=== PATIENT | male | born 1945 | race Caucasian/White ===

== ENCOUNTER → 2021-01-31 | Day surgery (SDC) | payer MEDICARE, BC ==
[~2021-01-31] MED LIST: Lactated Ringers 1,000 ML IV SCH; Propofol 200 MG/20 ML SDV ONE
[2021-01-31 10:01] VITALS: BP 105/53; PULSE 63
--- NOTE | 2021-01-31 12:04 | OR ---
DATE OF OPERATION: 01/31/2021 PREOPERATIVE DIAGNOSIS: ALTERED BOWEL HABITS. POSTOPERATIVE DIAGNOSIS: ALTERED BOWEL HABITS. SURGEON: Krish Johnson MD PROCEDURE: DIAGNOSTIC COLONOSCOPY WITH SNARE POLYPECTOMY X5. ANESTHESIA: MAC. COMPLICATIONS: None. SPECIMEN: Tubular adenomas x5, all 0.5 cm or less. FINDINGS: 1. Full-length colonoscopy. 2. Five separate tubular adenomas, see report. 3. Mild sigmoid diverticulosis. 4. No obstructing lesions to account for the patient's constipation. RECOMMENDATIONS: Continue with aggressive medical therapy. INDICATIONS: The patient has a reasonably acute onset over the last months of severe constipation, having a lot of difficult time going. He does have Parkinson's. We elected to proceed with a diagnostic colonoscopy. DESCRIPTION OF PROCEDURE: The patient was prepped and draped, placed in the left lateral decubitus position. A lubricated Olympus colonoscope was inserted and easily advanced to the cecum. Direct visualization of the ileocecal valve and appendiceal orifice was accomplished. The bowel prep was adequate. Upon withdrawal of the scope, the cecum and proximal ascending colon were benign. In the mid ascending colon region, the patient had 3 small tubular adenomas, all between 4 to 5 mm, all were removed with a snare and suctioned into polyp trap #1 without complication. The rest of the ascending and the first half of the transverse colon were unremarkable. In the mid transverse colon, the patient had a fourth tubular adenoma, maybe 5 to 6 mm, also removed with a snare and suctioned into polyp trap #2. The rest of the transverse and descending colons were unremarkable. The patient does have some scattered diverticula throughout the sigmoid colon, very mild in severity, around 40 cm. The patient's fifth polyp was a smaller flat tubular adenoma also removed with a snare and suctioned into polyp trap #3 without problem. The rest of the sigmoid and rectosigmoid junction were mass-free. I could find no obstructing lesions in the left colon. The rectal vault appeared benign. Retroflexion showed some perianal skin tags, otherwise benign. Air was suctioned and the scope removed without complication. BONY/TATUM /[id number]
== END ==
LOC: CC.SDS 08:00
PROVIDERS: ATTEND Family Medicine
DX: D12.2 Benign neoplasm of ascending colon (principal); D12.5 Benign neoplasm of sigmoid colon; D12.3 Benign neoplasm of transverse colon; K57.30 Diverticulosis of large intestine without perforation or abscess without bleeding; E78.5 Hyperlipidemia, unspecified; M81.0 Age-related osteoporosis without current pathological fracture; E55.9 Vitamin D deficiency, unspecified; Z79.899 Other long term (current) drug therapy; Z98.890 Other specified postprocedural states
CPT/HCPCS: 00811; 88305; 99100; J2704; J7120

== ENCOUNTER 2023-10-02 16:00 | Observation (INO) | payer MEDICARE, BC ==
[2023-10-02 16:59] LABS: BASOPHILS ABSOLUTE AUTO 0.05 10^3/uL (0.00-0.50); BASOPHILS PERCENT AUTO 0.3 % (0-1); EOSINOPHILS ABSOLUTE AUTO 0.02 10^3/uL (0.00-1.50); EOSINOPHILS PERCENT AUTO 0.1 % (0-6); HEMATOCRIT 46.5 % (42.0-52.0); HEMOGLOBIN 15.7 g/dL (14.0-18.0); IMMATURE GRAN ABSOLUTE AUTO 0.02 10^3/uL (0.00-0.49); IMMATURE GRAN PERCENT AUTO 0.1 % (0.0-4.9); LYMPHOCYTES ABSOLUTE AUTO 0.76 10^3/uL (0.60-5.00); LYMPHOCYTES PERCENT AUTO 5.1 % (24-44); MEAN CORPUSCULAR HEMOGLOBIN 33.2 pg (27.0-32.0); MEAN CORPUSCULAR HGB CONC 33.8 g/dL (32.0-36.0); MEAN CORPUSCULAR VOLUME 98.3 fL (83.0-97.0); MONOCYTES ABSOLUTE AUTO 1.61 10^3/uL (0.00-1.50); MONOCYTES PERCENT AUTO 10.9 % (0-10); NEUTROPHILS PERCENT AUTO 83.5 % (41-71); PLATELET COUNT,PLT 207 10^3/uL (150-400); RED BLOOD CELL COUNT 4.73 x10^6/uL (4.50-6.00); WHITE BLOOD CELL COUNT,WBC 14.8 10^3/uL (4.0-11.0)
[2023-10-02 17:18] LABS: BLOOD UREA NITROGEN,BUN 13 mg/dL (7-18); CALCIUM 8.9 mg/dL (8.4-10.1); CARBON DIOXIDE,CO2 27 mmol/L (21-32); CHLORIDE,CL 103 mEq/L (98-106); ESTIMATED GFR 77 mL/min (>=60); GLUCOSE RANDOM 113 mg/dL (75-99); POTASSIUM,K 3.7 mEq/L (3.5-5.0); SODIUM,NA 139 mEq/L (136-145)
[2023-10-02 17:19] LABS: ALANINE AMINOTRANSFERASE,ALT 10 U/L (12-78); ALKALINE PHOSPHATASE 88 U/L (46-116); ASPARTATE AMNIOTRANSFERASE,AST 17 U/L (15-37); BILIRUBIN TOTAL 1.5 mg/dL (0.0-1.0); PROTEIN TOTAL,TP 6.5 g/dL (6.4-8.2)
[2023-10-02 17:36] LABS: CORONAVIRUS COVID-19 NAA NEGATIVE (NEGATIVE); INFLUENZA A NAA NEGATIVE (NEGATIVE); INFLUENZA B NAA NEGATIVE (NEGATIVE); RESPIRATORY SYNCYTIAL VIR NAA NEGATIVE (NEGATIVE)
[2023-10-02] MEDS: Acetaminophen 325 MG Tab PO ONE (17:40)
[2023-10-02] MEDS: Ciprofloxacin 0.3% Ophth Soln 5 ML Bottle EYEBOTH SCH (18:48)
[2023-10-02 19:14] LABS: APPEARANCE,URINE CLOUDY (CLEAR); BILIRUBIN,URINE NEGATIVE (NEGATIVE); COLOR,URINE YELLOW (YELLOW); GLUCOSE,URINE NEGATIVE (NEGATIVE); KETONES,URINE 40 mg/dL (NEGATIVE); LEUKOCYTE ESTERASE,URINE NEGATIVE (NEGATIVE); NITRITE,URINE NEGATIVE (NEGATIVE); OCCULT BLOOD,URINE NEGATIVE (NEGATIVE); PH,URINE 8.5 (4.5-8.0); PROTEIN,URINE TRACE mg/dL (NEGATIVE)
[2023-10-02 19:28] LABS: RBC,URINE NOT SEEN /HPF (0-5); SQUAMOUS EPITHELIAL CELLS,UR OCCASIONAL /HPF (NOT SEEN)
[2023-10-02 19:29] LABS: AMORPHOUS SEDIMENT,URINE MODERATE /HPF (NOT SEEN); BACTERIA,URINE NOT SEEN /HPF (NOT SEEN); WBC,URINE NOT SEEN /HPF (0-5)
[2023-10-02] MEDS: Carbidopa/Levodopa 25-100 MG Tab.ER PO SCH (19:33)
[2023-10-02] MEDS: Enoxaparin 40 MG/0.4 ML Syringe SUBCUT SCH (21:35)
[2023-10-03] MEDS: Acetaminophen 325 MG Tab PO PRN (00:45)
[2023-10-03] MEDS: atorvaSTATin 20 MG Tab PO SCH (07:49)
[2023-10-03] MEDS: Cholecalciferol (Vitamin D3) 5,000 UNIT Tab PO SCH (07:49)
[2023-10-03 08:14] LABS: BASOPHILS ABSOLUTE AUTO 0.05 10^3/uL (0.00-0.50); BASOPHILS PERCENT AUTO 0.4 % (0-1); EOSINOPHILS ABSOLUTE AUTO 0.11 10^3/uL (0.00-1.50); EOSINOPHILS PERCENT AUTO 0.9 % (0-6); IMMATURE GRAN ABSOLUTE AUTO 0.03 10^3/uL (0.00-0.49); IMMATURE GRAN PERCENT AUTO 0.2 % (0.0-4.9); LYMPHOCYTES ABSOLUTE AUTO 0.91 10^3/uL (0.60-5.00); LYMPHOCYTES PERCENT AUTO 7.2 % (24-44); MEAN CORPUSCULAR HGB CONC 33.3 g/dL (32.0-36.0); MEAN CORPUSCULAR VOLUME 98.9 fL (83.0-97.0); MONOCYTES ABSOLUTE AUTO 1.35 10^3/uL (0.00-1.50); MONOCYTES PERCENT AUTO 10.7 % (0-10); NEUTROPHILS ABSOLUTE AUTO 10.13 x10^3/uL (1.80-8.00); NEUTROPHILS PERCENT AUTO 80.6 % (41-71); PLATELET COUNT,PLT 211 10^3/uL (150-400); RED BLOOD CELL COUNT 4.55 x10^6/uL (4.50-6.00); WHITE BLOOD CELL COUNT,WBC 12.6 10^3/uL (4.0-11.0)
[2023-10-03 08:30] VITALS: BP 125/65; PULSE 90
[2023-10-03 09:05] LABS: ALBUMIN 2.6 g/dL (3.4-5.0); BILIRUBIN TOTAL 1.6 mg/dL (0.0-1.0); CALCIUM 8.9 mg/dL (8.4-10.1); EST CRCL DRUG DOSING (CG) 63.8 mL/min; POTASSIUM,K 3.6 mEq/L (3.5-5.0); PROTEIN TOTAL,TP 6.2 g/dL (6.4-8.2)
== END 2023-10-03 11:38 | disposition home or self-care (01) ==
LOC: CC.ED 16:00 → CC.MS 18:05 → UNDOADMOB 18:05 → CC.ED 18:10 → CC.MS 18:42 → UNDODISOB 10-03 11:38
PROVIDERS: ADMIT Physician Assistant; ATTEND Physician Assistant
DX: H10.233 Serous conjunctivitis, except viral, bilateral (principal); R50.9 Fever, unspecified; G20.A1 Parkinson's disease without dyskinesia, without mention of fluctuations; E78.00 Pure hypercholesterolemia, unspecified; Z79.899 Other long term (current) drug therapy
CPT/HCPCS: 0241U; 36415; 71045; 71046; 80053; 81001; 83735; 84145; 85025; 87040; 87070; 87205; 96372; 99285; A9270-GY; G0378; J1650

== ENCOUNTER 2024-08-04 14:39 | Emergency (ER) | payer MEDICARE, BC ==
[2024-08-04 15:17] LABS: APPEARANCE,URINE CLEAR (CLEAR); BILIRUBIN,URINE NEGATIVE (NEGATIVE); COLOR,URINE YELLOW (YELLOW); GLUCOSE,URINE NEGATIVE (NEGATIVE); KETONES,URINE NEGATIVE (NEGATIVE); LEUKOCYTE ESTERASE,URINE NEGATIVE (NEGATIVE); NITRITE,URINE NEGATIVE (NEGATIVE); OCCULT BLOOD,URINE MODERATE (NEGATIVE); PROTEIN,URINE NEGATIVE (NEGATIVE); UROBILINOGEN,URINE 0.2 EU/dL (0.2-1.0)
[2024-08-04 15:22] LABS: RBC,URINE 40-50 /HPF (0-5); WBC,URINE NOT SEEN /HPF (0-5)
[2024-08-04 15:23] LABS: BACTERIA,URINE FEW /HPF (NOT SEEN); EPITHELIAL CELLS,URINE RARE /HPF (NOT SEEN); MUCUS,URINE OCCASIONAL /HPF (NOT SEEN)
[2024-08-04] MEDS ORDERED: Naloxone 2 MG/2 ML Syringe IVPUSH PRN (16:16)
[2024-08-04] MEDS: fentaNYL 50 MCG/ML SDV IVPUSH ONE ×2 (16:29→19:22)
[2024-08-04] MEDS: Lidocaine 2% Viscous Solution 15 ML UD PO ONE (19:59)
[2024-08-04] MEDS: cefTRIAXone 2 GM Vial IVPUSH ONE (20:20)
[2024-08-04 20:36] VITALS: BP 124/68; PULSE 115
== END 2024-08-04 20:51 ==
LOC: CC.ED 14:39
DX: R33.9 Retention of urine, unspecified (principal); N36.9 Urethral disorder, unspecified; E78.00 Pure hypercholesterolemia, unspecified; Z90.49 Acquired absence of other specified parts of digestive tract; Z90.79 Acquired absence of other genital organ(s); Z79.899 Other long term (current) drug therapy
CPT/HCPCS: 51702; 74176; 81001; 96374; 96375; 96376; 99284-25; A9270-GY; J0696; J3010